=== PATIENT | male | born 1975 | race Caucasian/White ===

== ENCOUNTER 2017-01-11 17:17 | Emergency (ER) | payer OTHER ==
[~2017-01-11] VITALS: Ht 177.8 cm; Wt 81.9 kg
[~2017-01-11 17:17] MED LIST: ASPI81TA28 PO; DPKEC250 PO; LOVA40TA43 PO
[2017-01-11 17:19] VITALS: TEMP 36.6; Ht 177.8 cm; Wt 81.9 kg
[2017-01-11] MEDS ORDERED: HYDROCODONE/ACETAMOPHEN 5/325MG TAB PO STA (17:34)
[2017-01-11 17:47] LABS: BASO % 0.3 %; BASO ABS # 0.03 K/uL (0-0.2); COMPLETE YES; EOS % 7.6 %; HEMATOCRIT 42.8 % (42-52); IG% 0.3 %; LYMPH % 19.4 %; LYMPH ABS # 2.26 K/uL (1.2-3.4); MEAN CELL VOLUME 78.7 fL (80-100); MEAN CORPUSCULAR HEMOGLOBIN 27.9 pg (25-34); MEAN CORPUSCULAR HGB CONC 35.5 g/dl (32-36); NEUT % 66.4 %; PLATELET COUNT 261 K/uL (130-400); RED BLOOD COUNT 5.44 M/uL (4.7-6.1); WHITE BLOOD COUNT 11.66 K/uL (4.8-10.8)
[2017-01-11 17:56] LABS: PARTIAL THROMBOPLASTIN RATIO 0.9; PROTHROMBIN TIME (PATIENT) 10.7 SECONDS (9.0-12.0)
[2017-01-11 18:03] LABS: BUN/CREATININE RATIO 13.8 (10-20); CALCIUM 9.9 mg/dl (8.5-10.1); CREATININE 1.1 mg/dl (0.60-1.40); POTASSIUM 3.5 mmol/L (3.5-5.1)
[2017-01-11] MEDS ORDERED: LTH300C PO (18:10)
[2017-01-11] MEDS ORDERED: LPT40 PO (18:10)
[2017-01-11] MEDS ORDERED: OMEP20CA9 PO (18:10)
--- NOTE | 2017-01-11 18:22 | DIAGNOSTIC IMAGING REPORT ---
RIGHT RIBS UNILATERAL WITH PA CHEST CLINICAL HISTORY: Trauma. Right-sided rib pain. COMPARISON STUDY: Chest x-ray dated June 07, 2016 FINDINGS: The erect chest reveals no pneumothorax. There is no focal pulmonary consolidation. No right-sided rib fractures are visualized. IMPRESSION: No evidence of pneumothorax. No right-sided rib fractures are visualized. Electronically signed by: Michelet Henriquez M.D. 01/11/2017 6:20 PM Dictated Date/Time: 01/11/2017 6:19 PM
--- NOTE | 2017-01-11 18:45 | DIAGNOSTIC IMAGING REPORT ---
CT HEAD WITHOUT CONTRAST (CT) CLINICAL HISTORY: Head pain status post trauma COMPARISON STUDY: 06/06/2016 TECHNIQUE: Axial CT of the brain is performed from the vertex to the skull base. IV contrast was not administered for this examination. CT DOSE: 623.48 mGy.cm FINDINGS: No intra or extra-axial mass lesions are visualized. There is no CT evidence of acute cortical infarction. There is no evidence of midline shift. There is no acute hemorrhage. No calvarial fractures are visualized. There is no evidence of pathologic ventricular dilatation. There is no evidence of acute sinusitis. There is a small/retention cyst within the right sphenoid. IMPRESSION: No acute intracranial findings Electronically signed by: Michelet Henriquez M.D. 01/11/2017 6:44 PM Dictated Date/Time: 01/11/2017 6:42 PM
--- NOTE | 2017-01-11 19:06 | EMERGENCY ROOM VISIT NOTE ---
History First contact with patient: 17:27 Chief Complaint: FALL Stated Complaint: RT SIDE PAIN,DIZZY,DISORIENTED,ITCHY,CHEST PAIN History of Present Illness The patient is a 41 year old male who presents to the Emergency Room with complaints of falling injuring his right side. The patient states that he was carrying a piece of plywood in his garage and tried to step over a weedeater and lost his balance falling onto his right side. He states he landed on some boards. He denies hitting his head he does admit to right-sided headache but states he had this prior to the fall. The states that after the fall she thought that he was slurring his speech and drooling. She states that he had a "mini stroke" in June. The patient states that he has scratches on his right ribs and has pain in that area as well as anterior chest. The patient denies any shortness of breath. He has increased pain with inspiration. The patient denies any abdominal pain, nausea or vomiting. The patient denies any low back pain. The patient states that after the injury he felt weak in his legs. Review of Systems 10 system review was performed and was negative unless stated otherwise history of present illness. Past Medical/Surgical History Medical Problems: (1) Bipolar 1 disorder (2) Coronary artery disease (3) Myocardial infarction (4) RUE weakness Family History FH: colon cancer FH: stomach cancer Social History Smoking Status: Former Smoker Alcohol Use: none Marital Status: single Occupation Status: employed Current/Historical Medications Scheduled Atorvastatin (Atorvastatin Calcium), 1 TAB PO DAILY Baltic Carbonate (Baltic Carbonate), 1 TAB PO BID Omeprazole (Prilosec), 1 CAP PO DAILY Allergies Coded Allergies: Penicillins (Verified Allergy, Unknown, CONGESTED, 01/11/17) Uncoded Allergies: BLEACH (Allergy, Severe, CAN'T BREATHE,HIVES, 01/28/15) Physical Exam Vital Signs Date Time Temp Pulse Resp B/P (MAP) Pulse Ox O2 Delivery O2 Flow Rate FiO2 01/11/17 18:19 69 18 123/93 99 Room Air 01/11/17 17:50 70 01/11/17 17:19 36.6 82 20 120/83 95 Room Air Physical Exam GENERAL: 41-year-old white male appears in no acute distress. MENTAL Status: Alert and oriented 3. HEAD: No gross bony deformity noted. The patient is tender to palpation over the right parietal region. EYES: PERRLA. EOMs intact. EARS: Canals clear. TMs without hemotympanum NECK: Supple, no lymphadenopathy noted. No carotid bruits noted. LUNGS: Clear auscultation without wheezes rales or rhonchi. CARDIAC: Regular rate and rhythm without murmur. Pulses is full and equal throughout. CHEST WALL: Patient has a few superficial abrasions on the right lateral chest wall. He is tender to palpation this area and over the upper anterior chest wall. Left side nontender. ABDOMEN: Positive bowel sounds all 4 quadrants. Soft, nontender to palpation without organomegaly or masses. MUSCULAR SKELETAL: Muscle strength is 5 out of 5 bilateral upper and lower extremities and symmetrical. Entire spine is nontender to palpation. NEURO:Cranial nerves two through 12 intact. Cerebellar function intact with [id number]. Fine motor intact with alternating finger motions. Medical Decision & Procedures ER Provider Diagnostic Interpretation: RIGHT RIBS UNILATERAL WITH PA CHEST CLINICAL HISTORY: Trauma. Right-sided rib pain. COMPARISON STUDY: Chest x-ray dated June 07, 2016 FINDINGS: The erect chest reveals no pneumothorax. There is no focal pulmonary consolidation. No right-sided rib fractures are visualized. IMPRESSION: No evidence of pneumothorax. No right-sided rib fractures are visualized. Electronically signed by: Michelet Henriquez M.D. 01/11/2017 6:20 PM Dictated Date/Time: 01/11/2017 6:[address] HEAD WITHOUT CONTRAST (CT) CLINICAL HISTORY: Head pain status post trauma COMPARISON STUDY: 06/06/2016 TECHNIQUE: Axial CT of the brain is performed from the vertex to the skull base. IV contrast was not administered for this examination. CT DOSE: 623.48 mGy.cm FINDINGS: No intra or extra-axial mass lesions are visualized. There is no CT evidence of acute cortical infarction. There is no evidence of midline shift. There is no acute hemorrhage. No calvarial fractures are visualized. There is no evidence of pathologic ventricular dilatation. There is no evidence of acute sinusitis. There is a small/retention cyst within the right sphenoid. IMPRESSION: No acute intracranial findings Electronically signed by: Michelet Henriquez M.D. 01/11/2017 6:44 PM Dictated Date/Time: 01/11/2017 6:42 PM Laboratory Results 01/11/17 17:37 Red Blood Count 5.44, Mean Corpuscular Volume 78.7, Mean Corpuscular Hemoglobin 27.9, Mean Corpuscular Hemoglobin Concent 35.5, Mean Platelet Volume 10.0, Neutrophils (%) (Auto) 66.4, Lymphocytes (%) (Auto) 19.4, Monocytes (%) (Auto) 6.0, Eosinophils (%) (Auto) 7.6, Basophils (%) (Auto) 0.3, Neutrophils # (Auto) 7.75, Lymphocytes # (Auto) 2.26, Monocytes # (Auto) 0.70, Eosinophils # (Auto) 0.89, Basophils # (Auto) 0.03 01/11/17 17:37 Test 01/11/17 17:37 White Blood Count 11.66 K/uL (4.8-10.8) Red Blood Count 5.44 M/uL (4.7-6.1) Hemoglobin 15.2 g/dL (14.0-18.0) Hematocrit 42.8 % (42-52) Mean Corpuscular Volume 78.7 fL (80-100) Mean Corpuscular Hemoglobin 27.9 pg (25-34) Mean Corpuscular Hemoglobin Concent 35.5 g/dl (32-36) Platelet Count 261 K/uL (130-400) Mean Platelet Volume 10.0 fL (7.4-10.4) Neutrophils (%) (Auto) 66.4 % Lymphocytes (%) (Auto) 19.4 % Monocytes (%) (Auto) 6.0 % Eosinophils (%) (Auto) 7.6 % Basophils (%) (Auto) 0.3 % Neutrophils # (Auto) 7.75 K/uL (1.4-6.5) Lymphocytes # (Auto) 2.26 K/uL (1.2-3.4) Monocytes # (Auto) 0.70 K/uL (0.11-0.59) Eosinophils # (Auto) 0.89 K/uL (0-0.5) Basophils # (Auto) 0.03 K/uL (0-0.2) RDW Standard Deviation 34.9 fL (36.4-46.3) RDW Coefficient of Variation 12.2 % (11.5-14.5) Immature Granulocyte % (Auto) 0.3 % Immature Granulocyte # (Auto) 0.03 K/uL (0.00-0.02) Prothrombin Time 10.7 SECONDS (9.0-12.0) Prothromb Time International Ratio 1.0 (0.9-1.1) Activated Partial Thromboplast Time 24.2 SECONDS (21.0-31.0) Partial Thromboplastin Ratio 0.9 Anion Gap 8.0 mmol/L (3-11) Est Creatinine Clear Calc Drug Dose 92.2 ml/min Estimated GFR () 96.8 Estimated GFR (Non- 83.5 BUN/Creatinine Ratio 13.8 (10-20) Calcium Level 9.9 mg/dl (8.5-10.1) Medications Administered Medications (Trade) Dose Ordered Sig/Anisha Route Start Time Stop Time Status Last Admin Dose Admin Acetaminophen/ Hydrocodone Bitart ([place] 5/325 Tab) 2 tab NOW STAT PO 01/11/17 17:34 01/11/17 17:37 DC 01/11/17 18:05 2 TAB ED Course The patient was evaluated. CT of the head was ordered and interpreted by the radiologist as above without any acute findings. The patient was given [place] 5/ 325 mg 2 tablets by mouth for pain. X-ray of the right ribs was ordered and interpreted by the radiologist and myself as above without any acute fractures. The patient was informed of all findings. The patient was discharged home in stable condition. Medical Decision Differential diagnosis include intracranial bleed, subarachnoid hemorrhage, head contusion, infarct Differential diagnosis per ribs include pneumothorax, rib fracture, rib contusion Impression Primary Impression: Contusion of rib on right side Additional Impression: Head pain Departure Information Dispostion Home / Self-Care Condition GOOD Referrals Rashmi Hardy D.O. (PCP) Forms HOME CARE DOCUMENTATION FORM, IMPORTANT VISIT INFORMATION Patient Instructions Bruises Contusions, My [employer] Additional Instructions Ibuprofen 600 mg every 6 hours with food for pain. May apply ice intermittently to the right chest wall over the next 4 hours. If symptoms are not improving in 3-4 days recommend follow-up with your family physician. Problem Qualifiers Primary Impression: Contusion of rib on right side Encounter type: initial encounter Qualified Codes: S20.211A - Contusion of right front wall of thorax, initial encounter Additional Impression: Head pain Headache type: unspecified Headache chronicity pattern: acute headache Intractability: not intractable Qualified Codes: R51 - Headache
[2017-01-11 19:35] VITALS: BP 129/96; PULSE 76; O2SAT 99
== END 2017-01-11 19:37 | disposition home or self-care (01) ==
LOC: C.EDB 17:18 → C.EDC 19:37
DX: S20.211A Contusion of right front wall of thorax, initial encounter (principal); R51 Headache; W18.09XA Striking against other object with subsequent fall, initial encounter; F31.9 Bipolar disorder, unspecified; I25.10 Atherosclerotic heart disease of native coronary artery without angina pectoris; I25.2 Old myocardial infarction; Z87.891 Personal history of nicotine dependence

== ENCOUNTER 2017-06-07 20:11 | Emergency (ER) | payer OTHER ==
[~2017-06-07] VITALS: Ht 177.8 cm; Wt 94.5 kg
[~2017-06-07 20:11] MED LIST changes: -ASPI81TA28 PO; -DPKEC250 PO; +DXY100 PO; -LOVA40TA43 PO; +LPT40 PO; +NICO14DI5 TD; +OMEP20CA9 PO; +PRVHFAIN INH; +RSP1 PO
[2017-06-07 20:14] VITALS: TEMP 36.4; Ht 177.8 cm; Wt 94.5 kg
[2017-06-07] MEDS ORDERED: PROCHLORPERAZINE 5 MG/ML 2 ML VIAL IV STA (20:38)
[2017-06-07] MEDS ORDERED: DiphenhydrAMINE HCL 50 MG/ML VIAL IV STA (20:38)
[2017-06-07] MEDS ORDERED: ACETAMINOPHEN 500 MG TAB PO STA (20:38)
[2017-06-07] MEDS ORDERED: GABA1CAP4 PO (20:50)
[2017-06-07] MEDS ORDERED: VNTHFA/IN INH (20:50)
[2017-06-07] MEDS ORDERED: NICO14DI TOP (20:50)
--- NOTE | 2017-06-07 20:50 | DIAGNOSTIC IMAGING REPORT ---
HEAD WITHOUT CONTRAST (CT) CLINICAL HISTORY: 41 years-old Male with EVALUATE WEAKNESS. Acute weakness TECHNIQUE: Multiple axial CT images of the head were obtained without contrast. A dose lowering technique was utilized adhering to the principles of ALARA. CT DOSE: 537.48 mGy.cm COMPARISON: CT head 01/11/2017. FINDINGS: No acute intracranial hemorrhage, midline shift, intracranial mass, hydrocephalus, territorial ischemia or abnormal extra-axial collection. The calvarium is intact. The mastoid air cells, and middle ear cavities are clear. Mild ethmoid sinus mucosal thickening. There is mild rightward bowing and spurring of the nasal septum. Mild maxillary sinus mucosal thickening is also present. IMPRESSION: No acute intracranial abnormality. The above report was generated using voice recognition software. It may contain grammatical, syntax or spelling errors. Electronically signed by: Andry Mcclendon M.D. 06/07/2017 8:48 PM Dictated Date/Time: 06/07/2017 8:45 PM
--- NOTE | 2017-06-07 21:01 | EMERGENCY ROOM VISIT NOTE ---
History Report prepared by Leslie: Janie Fontenot Under the Supervision of: Dr. Kenneth Kaur M.D. First contact with patient: 20:20 Chief Complaint: CVA SYMPTOMS Stated Complaint: PAIN IN HEAD,ARM,CHEST History of Present Illness The patient is a 41 year old white male with a past medical history of bipolar disorder, myocardial infarction, and coronary artery disease who presents to the ED with a cc of an episode of CVA symptoms beginning 30 minutes ago. Positive headache, neck pain, pain radiating down arm, pain radiating into chest , drooling on himself, and his left leg dragging. His notes that these are similar symptoms to when he had a TIA last year. He notes that he is supposed to take a baby Aspirin a day, but he forgets often. He notes that he has been under a lot of stress. Further review of EMR shows: Cardiology has evaluated the patient in the past. Had normal echocardiogram. Negative troponin. Negative stress test, which was completed last month. Reached 85% of max expected heart rate. The patient was evaluated by psych. Psych also saw the patient and was diagnosed with depression, anxiety, and questionable ADHD vs BPD. He does have a history of polysubstance abuse. Also neurology evaluated the patient. They state that they do not believe this is an organic process. Questionable artifact on an MRI and negative MRA. Negative chrono Doppler. This was all done in June of last year. Negative CT. Source of History: patient Onset: 30 mins ago Position: other (global) Quality: other (radiating ) Timing: other (episode) Associated Symptoms: + headache, + neck pain, + chest pain Note: The patient complains of arm pain, drooling on himself, and his left leg dragging. Review of Systems See HPI for pertinent positives and negatives. A total of ten systems were reviewed and were otherwise negative. Past Medical & Surgical Medical Problems: (1) Bipolar 1 disorder (2) Coronary artery disease (3) Myocardial infarction (4) RUE weakness Family History FH: colon cancer FH: stomach cancer Social History Smoking Status: Former Smoker Alcohol Use: none Marital Status: Housing Status: lives with family Occupation Status: employed Current/Historical Medications Scheduled Atorvastatin (Atorvastatin Calcium), 40 MG PO DAILY Gabapentin (Gabapentin), 300 MG PO DAILY Nicotine (Eq Nicotine), 1 PATCH TOP DAILY Risperidone (Risperidone), 1 MG PO TID Scheduled PRN Albuterol Hfa (Ventolin Hfa), 2 PUFFS INH QID PRN for SOB/Wheezing Omeprazole (Prilosec), 20 MG PO DAILY PRN for Acid Reflux Allergies Coded Allergies: Penicillins (Verified Allergy, Unknown, CONGESTED, 01/11/17) Physical Exam Vital Signs Date Time Temp Pulse Resp B/P (MAP) Pulse Ox O2 Delivery O2 Flow Rate FiO2 06/07/17 22:44 71 137/91 95 06/07/17 21:17 97 Room Air 06/07/17 21:16 96 Room Air 06/07/17 21:11 87 14 95 06/07/17 21:07 81 06/07/17 21:06 121/79 06/07/17 20:14 36.4 91 18 115/77 96 Room Air Physical Exam GENERAL: Awake, alert, well-appearing, NAD HENT: Normocephalic, atraumatic. EYES: Normal conjunctiva. Sclera non-icteric. NECK: Supple. No nuchal rigidity. FROM. RESPIRATORY: CTAB, no rhonchi, wheezing, crackles CARDIAC: RRR, no MRG ABDOMEN: Soft, NTND, BS+ MSK: No chest wall TTP, no LE edema NEURO: GCS 15, CN 2-12 intact, moves all 4s on command, questionable difficulty raising left eye brow, good flexion and extension of ankles. Normal ankle strength bilaterally. Difficulty with flexion of knee and hip bilaterally. SKIN: No rash or jaundice noted. Medical Decision & Procedures ER Provider Diagnostic Interpretation: Radiology results as stated below per my review and radiologist interpretation: CHEST ONE VIEW PORTABLE HISTORY: 41 years-old Male EVALUATE WEAKNESS acute weakness COMPARISON: Chest radiograph 05/08/2017 TECHNIQUE: Portable upright AP view of the chest FINDINGS: Cardiomediastinal and hilar silhouettes are within normal limits. There is no pneumothorax, pleural effusion, focal airspace consolidation or pulmonary edema. Bones of the chest are grossly intact. Increased attenuation of the left upper abdomen likely reflects contrast within the left renal collecting system from recent contrast-enhanced CT. IMPRESSION: No acute cardiopulmonary process. The above report was generated using voice recognition software. It may contain grammatical, syntax or spelling errors. Electronically signed by: Andry Mcclendon M.D. 06/07/2017 9:28 PM Dictated Date/Time: 06/07/2017 9:27 PM HEAD WITHOUT CONTRAST (CT) CLINICAL HISTORY: 41 years-old Male with EVALUATE WEAKNESS. Acute weakness TECHNIQUE: Multiple axial CT images of the head were obtained without contrast. A dose lowering technique was utilized adhering to the principles of ALARA. CT DOSE: 537.48 mGy.cm COMPARISON: CT head 01/11/2017. FINDINGS: No acute intracranial hemorrhage, midline shift, intracranial mass, hydrocephalus, territorial ischemia or abnormal extra-axial collection. The calvarium is intact. The mastoid air cells, and middle ear cavities are clear. Mild ethmoid sinus mucosal thickening. There is mild rightward bowing and spurring of the nasal septum. Mild maxillary sinus mucosal thickening is also present. IMPRESSION: No acute intracranial abnormality. The above report was generated using voice recognition software. It may contain grammatical, syntax or spelling errors. Electronically signed by: Andry Mcclendon M.D. 06/07/2017 8:48 PM Dictated Date/Time: 06/07/2017 8:45 PM HEAD ANGIO WITH CONTRAST, NECK ANGIO WITH CONTRAST HISTORY: 41 years-old male presents with acute left temporal headache COMPARISON: CT head of same day, MRI brain 06/07/2016 TECHNIQUE: CTA of the head and neck was obtained following the intravenous administration of of 116 mL Optiray 320 IV contrast. 3-D coronal and sagittal MIPS were obtained from the axial data set and cemented for review. All measurements were obtained according to NASCET criteria. A dose lowering technique was used consistent with the principals of ALARA. FINDINGS: CTA HEAD: There is mild atherosclerotic plaquing of the distal cervical segment left internal carotid artery. Bilateral internal carotid arteries, middle cerebral, anterior cerebral and anterior communicating arteries are patent and within normal limits. The bilateral vertebral arteries are patent. The basilar and posterior cerebral arteries are patent. Note is made of origin of the right posterior cerebral artery. No high-grade stenosis, aneurysm, dissection or proximal branch occlusion. The venous sinuses appear patent and within normal limits. No abnormal intracranial enhancement. Mild ethmoid and maxillary sinus disease. CTA NECK: Note is made of a bovine aortic arch. The bilateral subclavian arteries appear patent. The innominate artery and bilateral common carotid arteries are also widely patent. There is only minimal atheromatous plaquing of the left carotid bulb. The bilateral internal carotid arteries are also widely patent. The bilateral vertebral arteries appear codominant and are widely patent and appear to be within normal limits. The basilar artery is also widely patent. Lung apices are generally clear with mild biapical pleural-parenchymal scarring. No dominant thyroid nodule. No pathologic-appearing adenopathy identified. A few small right-sided palatine tonsilliths are noted. Mild multilevel uncovertebral spurring of the cervical spine. IMPRESSION: 1. Unremarkable CTA of the head and neck without aneurysm, high-grade stenosis, dissection or proximal branch occlusion. 2. No abnormal intracranial enhancement. 3. Mild paranasal sinus disease. The above report was generated using voice recognition software. It may contain grammatical, syntax or spelling errors. Electronically signed by: Andry Mcclendon M.D. 06/07/2017 9:17 PM Dictated Date/Time: 06/07/2017 9:04 PM Laboratory Results 06/07/17 21:45 Red Blood Count 4.70, Mean Corpuscular Volume 81.3, Mean Corpuscular Hemoglobin 27.7, Mean Corpuscular Hemoglobin Concent 34.0, Mean Platelet Volume 9.7, Neutrophils (%) (Auto) 47.2, Lymphocytes (%) (Auto) 36.0, Monocytes (%) (Auto) 7.0, Eosinophils (%) (Auto) 9.3, Basophils (%) (Auto) 0.4, Neutrophils # (Auto) 3.35, Lymphocytes # (Auto) 2.56, Monocytes # (Auto) 0.50, Eosinophils # (Auto) 0.66, Basophils # (Auto) 0.03 06/07/17 21:45 Test 06/07/17 21:20 06/07/17 21:45 Urine Color YELLOW Urine Appearance CLEAR (CLEAR) Urine pH 5.0 (4.5-7.5) Urine Specific [place] > 1.045 (1.000-1.030) Urine Protein NEG (NEG) Urine Glucose (UA) NEG (NEG) Urine Ketones NEG (NEG) Urine Occult Blood NEG (NEG) Urine Nitrite NEG (NEG) Urine Bilirubin NEG (NEG) Urine Urobilinogen NEG (NEG) Urine Leukocyte Esterase NEG (NEG) White Blood Count 7.11 K/uL (4.8-10.8) Red Blood Count 4.70 M/uL (4.7-6.1) Hemoglobin 13.0 g/dL (14.0-18.0) Hematocrit 38.2 % (42-52) Mean Corpuscular Volume 81.3 fL (80-100) Mean Corpuscular Hemoglobin 27.7 pg (25-34) Mean Corpuscular Hemoglobin Concent 34.0 g/dl (32-36) Platelet Count 206 K/uL (130-400) Mean Platelet Volume 9.7 fL (7.4-10.4) Neutrophils (%) (Auto) 47.2 % Lymphocytes (%) (Auto) 36.0 % Monocytes (%) (Auto) 7.0 % Eosinophils (%) (Auto) 9.3 % Basophils (%) (Auto) 0.4 % Neutrophils # (Auto) 3.35 K/uL (1.4-6.5) Lymphocytes # (Auto) 2.56 K/uL (1.2-3.4) Monocytes # (Auto) 0.50 K/uL (0.11-0.59) Eosinophils # (Auto) 0.66 K/uL (0-0.5) Basophils # (Auto) 0.03 K/uL (0-0.2) RDW Standard Deviation 38.1 fL (36.4-46.3) RDW Coefficient of Variation 12.8 % (11.5-14.5) Immature Granulocyte % (Auto) 0.1 % Immature Granulocyte # (Auto) 0.01 K/uL (0.00-0.02) Prothrombin Time 10.7 SECONDS (9.0-12.0) Prothromb Time International Ratio 1.0 (0.9-1.1) Activated Partial Thromboplast Time 26.4 SECONDS (21.0-31.0) Partial Thromboplastin Ratio 1.0 Anion Gap 6.0 mmol/L (3-11) Est Creatinine Clear Calc Drug Dose 105.9 ml/min Estimated GFR () 100.1 Estimated GFR (Non- 86.4 BUN/Creatinine Ratio 12.5 (10-20) Calcium Level 8.8 mg/dl (8.5-10.1) Magnesium Level 2.2 mg/dl (1.8-2.4) Total Bilirubin 0.3 mg/dl (0.2-1) Direct Bilirubin < 0.1 mg/dl (0-0.2) Aspartate Amino Transf (AST/SGOT) 26 U/L (15-37) Alanine Aminotransferase (ALT/SGPT) 108 U/L (12-78) Alkaline Phosphatase 128 U/L (45-117) Troponin I < 0.015 ng/ml (0-0.045) Total Protein 6.9 gm/dl (6.4-8.2) Albumin 3.5 gm/dl (3.4-5.0) Lipase 142 U/L (73-393) Thyroid Stimulating Hormone (TSH) 1.920 uIu/ml (0.300-4.500) Laboratory results reviewed by me Medications Administered Medications (Trade) Dose Ordered Sig/Anisha Route Start Time Stop Time Status Last Admin Dose Admin Prochlorperazine Edisylate (Compazine Inj) 10 mg NOW STAT IV 06/07/17 20:38 06/07/17 20:39 DC 06/07/17 21:08 10 MG Acetaminophen (Tylenol Tab) 1,000 mg NOW STAT PO 06/07/17 20:38 06/07/17 20:39 DC 06/07/17 21:08 1,000 MG Diphenhydramine HCl (Benadryl Inj) 50 mg NOW STAT IV 06/07/17 20:38 06/07/17 20:39 DC 06/07/17 21:08 50 MG Ketorolac Tromethamine (Toradol Inj) 30 mg NOW STAT IV 06/07/17 21:35 06/07/17 21:36 DC 06/07/17 21:54 30 MG Hydroxyzine HCl (Vistaril Tab) 25 mg NOW STAT PO 06/07/17 21:47 06/07/17 21:48 DC 06/07/17 21:53 25 MG ECG Indication: chest pain Rate (beats per minute): 79 Rhythm: normal sinus Findings: other (normal intervals, normal axis, no STS or TWI ) ED Course 2027: The patient was evaluated in room C6. A complete history and physical exam was performed. 2100: I reevaluated the patient and he states that his skin is itching. 2214: I reevaluated the patient. Discussed results and discharge instructions: He verbalized understanding and agreement. The patient is ready for discharge. Medical Decision The patient is a 41 year old white male with a past medical history of bipolar disorder, myocardial infarction, and coronary artery disease who presents to the ED with a cc of an episode of CVA symptoms beginning 30 minutes ago. Etiologies such as metabolic, infection, hypo/hyperglycemia, electrolyte abnormalities, cardiac sources, intracerebral event, toxicologic, neurologic, as well as others were entertained. Patient was seen and evaluated at the bedside and patient is a 41-year-old with a reported history of prior mini stroke and minor heart attack. He presents with complaints of apparently dragging his left leg in addition to drooling with onset of headache left arm and chest pain. Patient has been seen and evaluated twice in the last year for concerns for chest pains as well as for question of strokelike symptoms. Patient was seen and evaluated having multiple advanced imaging studies which didn't show anything acute patient was evaluated by psychiatry. This is after the neurologist believe that this was likely a nonorganic process although the patient did have some risk factors this was less likely to be an acute stroke. Patient is no prior history of seizures. Patient does have a long-standing psych history as he was evaluated was diagnosed with major depression, anxiety, questionable PPD versus ADHD, questionable posttraumatic stress disorder secondary to violent upbringing. Patient states he did not take anything prior visit discomfort. Patient states he didn't notice any of the symptoms with a reported out by his significant other who is at the bedside. Patient states he has had increased stresses secondary to Garcia's. Of note patient was recently seen and evaluated home with prior for chest pains. Patient did state that he had a prior history of [place]. Patient had normal echocardiogram, normal stress echocardiogram with no wall motion abnormality, negative troponins. Patient's current symptoms he does have some questionable difficulty with raising his left eyebrow. He also had been complaining of dragging his left leg but when assessing his lower extremity strength he has normal flexion and extension at the ankles, and normal extension at the knee in the hip but he does have decreased strength to flexion at the knee and hip. Given the inconsistencies in his exam, even given the acuteness of his presentation, a code stroke was not initiated. These findings were not as consistent with an acute stroke given his facial and then lower extremity bilateral findings. Patient is no other history of MS. He doesn't complain of any vision difficulties. Patient did have blood work that was completed, EKG, troponin, CT brain, CTA of the head and neck. Of note last year patient had a questionable MRI that was likely more artifact, negative MRA , negative CT brain, negative carotid ultrasound. Patient was also treated for his headache. Patient had negative imaging CT noncontrast as well as CTA of the head and neck. Patient had a negative chest film. Patient's blood work showed that the patient had a normal white blood cell count 7000. Patient did have a noted mild anemia with a 3 point drop in his hemoglobin since his last visit last month. However, patient denies any hematemesis or rectal bleeding. Patient does not take any blood thinning medications. Patient is otherwise a symptomatically is a is not tachycardic nor is he hypertensive. Patient to follow-up with regard to this as an outpatient. Patient's EKG was nonischemic. Patient had normal lipase. Mild elevations in LFTs. Patient had a negative troponin. Patient's urinalysis was negative for infection or blood. Patient's headache improved. Given the patient's prior symptomatology, inconsistent neurologic exam findings with increased stress, I do not believe that this is an acute stroke. I also don't believe that this is SAH as the patient presented fairly acutely < 6 hrs since onset furthermore this is not described as thunderclap, exertional, w/ associated LOC, or limited motion of the neck. Patient was told that he needs continue taking his aspirin as he was instructed to as an outpatient. Patient states he's continued take his atorvastatin. Patient was also counseled on smoking cessation. Patient was referred to neurology as an outpatient. Patient was also told to follow-up with whomever he had been seen for psych. Given the patient has had a recent stress echocardiogram without any overt findings and patient has a nonischemic EKG with a negative troponin is less likely to be ACS. Patient was informed of all findings and patient was deemed suitable for outpatient follow-up and treatment. Patient was given strict follow-up, discharge, and return precautions. All questions were answered. Patient was deemed suitable for outpatient follow-up at this time. Patient agreed with the plan of care and was safely discharged home. Medication Reconcilliation Current Medication List: was personally reviewed by me Blood Pressure Screening Patient's blood pressure: Normal blood pressure Blood pressure disposition: Did not require urgent referral Impression Primary Impression: Neck pain Additional Impressions: Headache Chest pain Transient left leg weakness Scribe Attestation The scribe's documentation has been prepared under my direction and personally reviewed by me in its entirety. I confirm that the note above accurately reflects all work, treatment, procedures, and medical decision making performed by me. Departure Information Dispostion Home / Self-Care Referrals Rashmi Hardy D.O. (PCP) Forms HOME CARE DOCUMENTATION FORM, IMPORTANT VISIT INFORMATION, WORK / SCHOOL INSTRUCTIONS Patient Instructions Chest Pain - [facility], Headache Pain, [facility] Additional Instructions Please return to the emergency department if you have worsening or recurrent symptoms not amenable to at-home treatment. Please call for a follow-up appointment with her primary care physician. Please take your medications as prescribed. If you have other concerns and/or complaints please feel free to also call your primary care physician's office or return the ED for further evaluation, management, and treatment. You may take 600 mg Ibuprofen every 6 hours as needed for pain with food for no more than 2 consecutive days. You may take tylenol 1000 mg every 6 hours as needed for pain. You may take motrin and tylenol separately or at the same time. Take your medications as prescribed. Please follow-up with your neurologist as well as your psychiatrist. You may also follow-up with her roll up helper as needed. This may be coordinated through your primary care physician Dr. Hardy. You have been examined and treated today on an emergency basis only. This is not a substitute for, or an effort to provide, complete comprehensive medical care. It is impossible to recognize and treat all injuries or illnesses in a single emergency department visit. It is therefore important that you follow up closely with [facility], your PCP, and/or your specialist(s). Call as soon as possible for an appointment. Thank you for your time and consideration. I look forward to speaking with you again soon. Please don't hesitate to call us if you have any questions. Problem Qualifiers Additional Impressions: Headache Headache type: unspecified Headache chronicity pattern: acute headache Intractability: not intractable Qualified Codes: R51 - Headache Chest pain Chest pain type: unspecified Qualified Codes: R07.9 - Chest pain, unspecified
[2017-06-07] MEDS ORDERED: OPTIRAY 320 IV PRN (21:15)
[2017-06-07 21:17] VITALS: O2SAT 97
--- NOTE | 2017-06-07 21:19 | DIAGNOSTIC IMAGING REPORT ---
HEAD ANGIO WITH CONTRAST, NECK ANGIO WITH CONTRAST HISTORY: 41 years-old male presents with acute left temporal headache COMPARISON: CT head of same day, MRI brain 06/07/2016 TECHNIQUE: CTA of the head and neck was obtained following the intravenous administration of of 116 mL Optiray 320 IV contrast. 3-D coronal and sagittal MIPS were obtained from the axial data set and cemented for review. All measurements were obtained according to NASCET criteria. A dose lowering technique was used consistent with the principals of DANA. FINDINGS: CTA HEAD: There is mild atherosclerotic plaquing of the distal cervical segment left internal carotid artery. Bilateral internal carotid arteries, middle cerebral, anterior cerebral and anterior communicating arteries are patent and within normal limits. The bilateral vertebral arteries are patent. The basilar and posterior cerebral arteries are patent. Note is made of origin of the right posterior cerebral artery. No high-grade stenosis, aneurysm, dissection or proximal branch occlusion. The venous sinuses appear patent and within normal limits. No abnormal intracranial enhancement. Mild ethmoid and maxillary sinus disease. CTA NECK: Note is made of a bovine aortic arch. The bilateral subclavian arteries appear patent. The innominate artery and bilateral common carotid arteries are also widely patent. There is only minimal atheromatous plaquing of the left carotid bulb. The bilateral internal carotid arteries are also widely patent. The bilateral vertebral arteries appear codominant and are widely patent and appear to be within normal limits. The basilar artery is also widely patent. Lung apices are generally clear with mild biapical pleural-parenchymal scarring. No dominant thyroid nodule. No pathologic-appearing adenopathy identified. A few small right-sided palatine tonsilliths are noted. Mild multilevel uncovertebral spurring of the cervical spine. IMPRESSION: 1. Unremarkable CTA of the head and neck without aneurysm, high-grade stenosis, dissection or proximal branch occlusion. 2. No abnormal intracranial enhancement. 3. Mild paranasal sinus disease. The above report was generated using voice recognition software. It may contain grammatical, syntax or spelling errors. Electronically signed by: Andry Mcclendon M.D. 06/07/2017 9:17 PM Dictated Date/Time: 06/07/2017 9:04 PM
--- NOTE | 2017-06-07 21:30 | DIAGNOSTIC IMAGING REPORT ---
CHEST ONE VIEW PORTABLE HISTORY: 41 years-old Male EVALUATE WEAKNESS acute weakness COMPARISON: Chest radiograph 05/08/2017 TECHNIQUE: Portable upright AP view of the chest FINDINGS: Cardiomediastinal and hilar silhouettes are within normal limits. There is no pneumothorax, pleural effusion, focal airspace consolidation or pulmonary edema. Bones of the chest are grossly intact. Increased attenuation of the left upper abdomen likely reflects contrast within the left renal collecting system from recent contrast-enhanced CT. IMPRESSION: No acute cardiopulmonary process. The above report was generated using voice recognition software. It may contain grammatical, syntax or spelling errors. Electronically signed by: Andry Mcclendon M.D. 06/07/2017 9:28 PM Dictated Date/Time: 06/07/2017 9:27 PM
[2017-06-07] MEDS ORDERED: KETOROLAC TROMETHAMINE 30 MG/ML VIAL IV STA (21:35)
[2017-06-07] MEDS ORDERED: hydrOXYzine HCL 25 MG TAB PO STA (21:47)
[2017-06-07 21:57] LABS: URINE APPEARANCE CLEAR (CLEAR); URINE BILIRUBIN NEG (NEG); URINE COLOR YELLOW; URINE NITRITE NEG (NEG); URINE SPECIFIC GRAVITY > 1.045 (1.000-1.030); UROBILINOGEN NEG (NEG)
[2017-06-07 22:07] LABS: MANUAL MICROSCOPIC REQUIRED? NO; REVIEW REQ? NO
[2017-06-07 22:07] LABS: BASO % 0.4 %; BASO ABS # 0.03 K/uL (0-0.2); COMPLETE YES; EOS % 9.3 %; HEMATOCRIT 38.2 % (42-52); IG% 0.1 %; LYMPH ABS # 2.56 K/uL (1.2-3.4); MEAN CELL VOLUME 81.3 fL (80-100); MEAN CORPUSCULAR HEMOGLOBIN 27.7 pg (25-34); MEAN PLATELET VOLUME 9.7 fL (7.4-10.4); NEUT % 47.2 %; PLATELET COUNT 206 K/uL (130-400); WHITE BLOOD COUNT 7.11 K/uL (4.8-10.8)
[2017-06-07 22:15] LABS: PROTHROMBIN TIME (PATIENT) 10.7 SECONDS (9.0-12.0)
[2017-06-07 22:22] LABS: ALT/SGPT 108 U/L (12-78); BLOOD UREA NITROGEN 13 mg/dl (7-18); BUN/CREATININE RATIO 12.5 (10-20); CALCIUM 8.8 mg/dl (8.5-10.1); CARBON DIOXIDE 29 mmol/L (21-32); CHLORIDE 103 mmol/L (98-107); CREATININE 1.07 mg/dl (0.60-1.40); GLUCOSE 87 mg/dl (70-99); MAGNESIUM 2.2 mg/dl (1.8-2.4); POTASSIUM 3.6 mmol/L (3.5-5.1); SODIUM 138 mmol/L (136-145)
[2017-06-07 22:33] LABS: ALKALINE PHOSPHATASE 128 U/L (45-117); AST/SGOT 26 U/L (15-37)
[2017-06-07 22:44] VITALS: BP 137/91; PULSE 71; O2SAT 95
== END 2017-06-07 22:46 | disposition home or self-care (01) ==
LOC: C.EDB 20:13 → C.EDC 22:46
DX: M54.2 Cervicalgia (principal); R51 Headache; R07.9 Chest pain, unspecified; M62.81 Muscle weakness (generalized); F31.9 Bipolar disorder, unspecified; I25.10 Atherosclerotic heart disease of native coronary artery without angina pectoris; I25.2 Old myocardial infarction; Z86.73 Personal history of transient ischemic attack (TIA), and cerebral infarction without residual deficits; Z87.898 Personal history of other specified conditions; Z87.891 Personal history of nicotine dependence; Z80.0 Family history of malignant neoplasm of digestive organs